=== PATIENT | male | born 1975 | race Two or more races ===

== ENCOUNTER 2023-03-05 08:33 | Emergency (ER) | payer OTHER ==
[~2023-03-05] VITALS: Ht 172.7 cm; Wt 140.2 kg
[2023-03-05] MEDS ORDERED: ZESTRIL40 M1 (08:37)
== END 2023-03-05 10:26 | disposition home or self-care (01) ==
LOC: ER 08:34
DX: S13.8XXA Sprain of joints and ligaments of other parts of neck, initial encounter (principal); W19.XXXA Unspecified fall, initial encounter; Y93.89 Activity, other specified; Y92.89 Other specified places as the place of occurrence of the external cause; Y99.8 Other external cause status; I10 Essential (primary) hypertension; Z88.2 Allergy status to sulfonamides